=== PATIENT | female | born 1960 | race Caucasian/White ===

== ENCOUNTER 2018-09-21 15:48 | Emergency (ER) | payer OTHER ==
[2018-09-21 17:08] LABS: URINE BLOOD (Dip) POC Trace-lysed (NEGATIVE); URINE GLUCOSE (Dip) POC Negative (NEGATIVE); URINE KETONES (Dip) POC Negative (NEGATIVE); URINE LEUKOCYTE EST (Dip) POC 2+ (NEGATIVE); URINE NITRITE (Dip) POC Negative (NEGATIVE); URINE TOTAL PROTEIN POC Negative (NEGATIVE)
[2018-09-21 17:08] LABS: URINE PH (Dip) POC 5.5 (5.0-8.5)
== END 2018-09-21 18:46 | disposition home or self-care (01) ==
LOC: FTE 15:48
DX: H43.392 Other vitreous opacities, left eye (principal); N39.0 Urinary tract infection, site not specified
CPT/HCPCS: 76536; 81003; 99284-25